=== PATIENT | male | born 1950 | race Caucasian/White ===

== ENCOUNTER 2017-04-28 09:18 | Emergency (ER) | payer OTHER ==
[~2017-04-28] VITALS: Ht 182.9 cm; Wt 150.0 kg
[2017-04-28 09:19] VITALS: BP 179/98; PULSE 89; RESP 20; TEMP 98; O2SAT 97
[2017-04-28 09:36] VITALS: BP 188/101; PULSE 62; RESP 20; O2SAT 97
[2017-04-28] MEDS ORDERED: OMEP20TA93 PO (09:41)
[2017-04-28] MEDS ORDERED: HYDR25TA5 PO (09:41)
[2017-04-28] MEDS ORDERED: POTA10CA PO (09:41)
[2017-04-28] MEDS ORDERED: ATOR20TA15 PO (09:41)
[2017-04-28] MEDS ORDERED: CHOL10008 (09:41)
[2017-04-28] MEDS ORDERED: METO-393 PO (09:41)
[2017-04-28] MEDS ORDERED: LORA1TAB12 PO (09:41)
[2017-04-28] MEDS ORDERED: ASPI-516 CHEW (09:41)
[2017-04-28] MEDS ORDERED: CITA40TA4 PO (09:41)
[2017-04-28] MEDS ORDERED: ALLO100T PO (09:41)
--- NOTE | 2017-04-28 09:54 | PD ---
HPI Chief Complaint: Respiratory Distress Time Seen by Provider: 09:53 Travel History International Travel<30 days: No Contact w/Intl Traveler<30days: No Traveled to known affect area: No History of Present Illness HPI 66-year-old male came to the emergency room with history shortness of breath over past 5-6 days which is worse upon exertion, laying down flat or even sitting. Patient says it has to do with his abdomen. It is getting more and more distended and his legs look swollen. He does have history of atrial fibrillation and is seen by ultrasound technol from [place]. His is in the room who gave additional history that patient had echocardiogram done 1 month ago which showed an EF of 60%. Patient's vital signs are stable. He has a pacemaker. Patient denies of any chest pain. Patient used to be a heavy alcohol drinker up until 6 weeks ago. Currently he is not drinking anymore. No known history of cirrhosis. PFSH Past Medical History Narrative Medical List of his past medical, surgical, social and family history is reviewed from the nursing note Hx Anticoagulant Therapy: Yes Atrial Fibrillation: Yes Cancer: Yes (prostate) Cardiovascular Problems: Yes Diminished Hearing: No Hypertension: Yes ?: Not Past Surgical History Pacemaker: Yes Social History Alcohol Use: No (quit 6 weeks ago) Tobacco Use: No Substance Use: Yes (marijuana) Allergies-Medications (Allergen,Severity, Reaction): Coded Allergies: No Known Allergies (Unverified , 04/28/17) Comments No known drug allergies. Reported Meds & Prescriptions Reported Meds & Active Scripts Active Lasix (Furosemide) 40 Mg Tab 40 Mg PO DAILY Reported Lorazepam 1 Mg Tab 1 Mg PO Q8H PRN Omeprazole 20 Mg Tab 20 Mg PO DAILY Aspirin 81 Mg Chew 81 Mg CHEW DAILY Vitamin D3 (Cholecalciferol) 1,000 Unit Cap 1,000 Units DAILY Citalopram (Citalopram Hydrobromide) 40 Mg Tab 40 Mg PO DAILY Allopurinol 100 Mg Tab 100 Mg PO DAILY Potassium Chloride ER (Potassium Chloride) 10 Meq Cap 10 Meq PO BID Hydrochlorothiazide 25 Mg Tab 25 Mg PO BID Metoprolol Succinate ER 24 HR (Metoprolol Succinate) 200 Mg Tab 200 Mg PO DAILY Atorvastatin (Atorvastatin Calcium) 20 Mg Tab 20 Mg PO HS Narrative Medication List of his home medications reviewed from the nursing note. Review of Systems Except as stated in HPI: all other systems reviewed are Neg Respiratory: Positive: Shortness of Breath Musculoskeletal: Positive: Edema Physical Exam Narrative GENERAL: Awake, alert, morbidly obese, mild distress SKIN: Focused skin assessment warm/dry. HEAD: Atraumatic. Normocephalic. EYES: Pupils equal and round. No scleral icterus. No injection or drainage. ENT: No nasal bleeding or discharge. Mucous membranes pink and moist. NECK: Trachea midline. No JVD. CARDIOVASCULAR: Regular rate and rhythm. No murmur appreciated. RESPIRATORY: No accessory muscle use. Clear to auscultation. Breath sounds equal bilaterally. GASTROINTESTINAL: Abdomen soft, non-tender, nondistended. Hepatic and splenic margins not palpable. MUSCULOSKELETAL: No obvious deformities. No clubbing. No cyanosis. Edema. NEUROLOGICAL: Awake and alert. No obvious cranial nerve deficits. Motor grossly within normal limits. Normal speech. PSYCHIATRIC: Appropriate mood and affect; insight and judgment normal. Data Data Last Documented VS Orders Orders Electrocardiogram (04/28/17 ) Complete Blood Count With Diff (04/28/17 10:01) Comprehensive Metabolic Panel (04/28/17 10:01) B-Type Natriuretic Peptide (04/28/17 10:01) Prothrombin Time / Inr (Pt) (04/28/17 10:01) Troponin I (04/28/17 10:01) Iv Access Insert/Monitor (04/28/17 10:01) Ecg Monitoring (04/28/17 10:01) Oximetry (04/28/17 10:01) Oxygen Administration (04/28/17 10:01) Chest, Single Ap (04/28/17 10:01) Sodium Chloride 0.9% Flush (Ns Flush) (04/28/17 10:15) Ct Abd/Pel W/O Iv Contrast (04/28/17 ) Oral Contrast - Adult (04/28/17 10:09) Diatrizoate Liq ( Gastroabraham Liq) (04/28/17 10:45) Ed Discharge Order (04/28/17 14:07) Labs Laboratory Tests Test 04/28/17 10:00 04/28/17 10:45 White Blood Count 6.2 TH/MM3 Red Blood Count 4.58 MIL/MM3 Hemoglobin 14.6 GM/DL Hematocrit 40.8 % Mean Corpuscular Volume 89.2 FL Mean Corpuscular Hemoglobin 31.8 PG Mean Corpuscular Hemoglobin Concent 35.7 % Red Cell Distribution Width 12.8 % Platelet Count 178 TH/MM3 Mean Platelet Volume 9.8 FL Neutrophils (%) (Auto) 65.0 % Lymphocytes (%) (Auto) 24.9 % Monocytes (%) (Auto) 8.0 % Eosinophils (%) (Auto) 1.6 % Basophils (%) (Auto) 0.5 % Neutrophils # (Auto) 4.0 TH/MM3 Lymphocytes # (Auto) 1.5 TH/MM3 Monocytes # (Auto) 0.5 TH/MM3 Eosinophils # (Auto) 0.1 TH/MM3 Basophils # (Auto) 0.0 TH/MM3 CBC Comment DIFF FINAL Differential Comment B-Type Natriuretic Peptide 141 PG/ML Prothrombin Time 11.2 SEC Prothromb Time International Ratio 1.1 RATIO Blood Urea Nitrogen 12 MG/DL Creatinine 0.68 MG/DL Random Glucose 137 MG/DL Total Protein 6.7 GM/DL Albumin 3.2 GM/DL Calcium Level 8.7 MG/DL Alkaline Phosphatase 70 U/L Aspartate Amino Transf (AST/SGOT) 21 U/L Alanine Aminotransferase (ALT/SGPT) 32 U/L Total Bilirubin 0.8 MG/DL Sodium Level 141 MEQ/L Potassium Level 3.6 MEQ/L Chloride Level 105 MEQ/L Carbon Dioxide Level 30.0 MEQ/L Anion Gap 6 MEQ/L Estimat Glomerular Filtration Rate 116 ML/MIN Troponin I LESS THAN 0.02 NG/ML MDM Medical Decision Making Medical Screen Exam Complete: Yes Emergency Medical Condition: Yes Medical Record Reviewed: Yes Interpretation(s) Twelve-lead EKG was reviewed by me. Intermittently paced rhythm, A. fib. Heart rate of 63 bpm. Differential Diagnosis CHF, ascites, pleural effusion, pneumonia Narrative Course 2:05 PM blood test results are back and within acceptable limits. BNP is within normal limits. Chest x-ray shows cardiomegaly but no fluid. I done a CT scan of his abdomen and pelvis that does not show any ascites and some other chronic findings unrelated to his current complaint. I am comfortable discharging this patient home. He needs to follow-up with his primary care outpatient. Procedures EKG Prior to Arrival: No Diagnosis Primary Impression: Obesity Qualified Codes: E66.9 - Obesity, unspecified; Z68.39 - Body mass index (bmi) 39.0-39.9, adult Additional Impression: Dyspnea on exertion Referrals: Primary Care Physician Additional Instructions: Please return to the ER if condition worsen or any other concerns. Otherwise follow-up with her primary care. Exercise and diet control will help with your condition. Med/Other Pt SpecificInfo: Prescription(s) given, No Change to Meds (Stop taking the hydrochlorothiazide) Scripts Furosemide (Lasix) 40 Mg Tab 40 MG PO DAILY, #30 TAB 0 Refills Prov: Tony Rubio MD 04/28/17 Disposition: 01 DISCHARGE HOME Condition: Stable Tony Rubio MD Apr 28, 2017 09:54
[2017-04-28] MEDS ORDERED: SODIUM CHLORIDE 0.9% FLUSH 10 ML FLUSH IVF PRN (10:15)
[2017-04-28 10:27] LABS: BASOPHIL % 0.5 % (0.0-2.0); EOSINOPHIL # 0.1 TH/MM3 (0-0.4); EOSINOPHIL % 1.6 % (0.0-4.0); HEMATOCRIT 40.8 % (39.0-51.0); HEMOGLOBIN 14.6 GM/DL (13.0-17.0); LYMPH % 24.9 % (9.0-44.0); LYMPHOCYTE # 1.5 TH/MM3 (1.0-4.8); MEAN CELL VOLUME 89.2 FL (80.0-100.0); MEAN CORPUSCULAR HEMOGLOBIN 31.8 PG (27.0-34.0); MEAN CORPUSCULAR HGB CONC 35.7 % (32.0-36.0); MEAN PLATELET VOLUME 9.8 FL (7.0-11.0); MONOCYTE # 0.5 TH/MM3 (0-0.9); PLATELET COUNT 178 TH/MM3 (150-450); RED BLOOD COUNT 4.58 MIL/MM3 (4.50-5.90); RED CELL DISTRIBUTION WIDTH 12.8 % (11.6-17.2); WHITE BLOOD COUNT 6.2 TH/MM3 (4.0-11.0)
[2017-04-28] MEDS ORDERED: DIATRIZOATE MEGLUM/DIATRIZOATE SOD 9 ML CUP ONE (10:45)
--- NOTE | 2017-04-28 10:48 | RADRPT ---
EXAM DATE/TIME: 04/28/2017 10:20 [facility] COMPARISON: No previous studies available for comparison. INDICATIONS : Short of breath with dizziness x1 week. MEDICAL HISTORY : None. SURGICAL HISTORY : None. ENCOUNTER: Initial ACUITY: 1 week PAIN SCORE: 3/10 LOCATION: Bilateral chest FINDINGS: A single view of the chest demonstrates the lungs to be symmetrically aerated without evidence of mas s, infiltrate or effusion. Heart enlarged. Pulmonary vascularity normal. Slight elevation right hemid iaphragm. The cardiomediastinal contours are unremarkable. Osseous structures are intact. CONCLUSION: Cardiomegaly with left sided pacemaker. Samy Sloan MD on April 28, 2017 at 10:45 Board Certified Radiologist. This report was verified electronically.
[2017-04-28 11:16] LABS: INTERNATIONAL NORMALIZED RATIO 1.1 RATIO; PROTHROMBIN TIME - PATIENT 11.2 SEC (9.8-11.6)
[2017-04-28 11:22] LABS: ALBUMIN 3.2 GM/DL (3.4-5.0); ALT (GPT) 32 U/L (12-78); AST (GOT) 21 U/L (15-37); BLOOD UREA NITROGEN 12 MG/DL (7-18); CALCIUM 8.7 MG/DL (8.5-10.1); CHLORIDE 105 MEQ/L (98-107); CREATININE 0.68 MG/DL (0.60-1.30); GLOMERULAR FILTRATION RATE 116 ML/MIN (>89); GLUCOSE,RANDOM 137 MG/DL (74-106); SODIUM (NA) 141 MEQ/L (136-145)
[2017-04-28 11:26] LABS: ALKALINE PHOSPHATASE 70 U/L (45-117); TOTAL BILIRUBIN ADULT 0.8 MG/DL (0.2-1.0); TOTAL PROTEIN 6.7 GM/DL (6.4-8.2); TROPONIN I LESS THAN 0.02 NG/ML (0.02-0.05)
--- NOTE | 2017-04-28 13:07 | RADRPT ---
EXAM DATE/TIME: 04/28/2017 12:47 [facility] COMPARISON: No previous studies available for comparison. INDICATIONS : Abdominal discomfort ORAL CONTRAST: Prescribed oral contrast ingested. RADIATION DOSE: 29.48 CTDIvol (mGy) ; Patient body habitus MEDICAL HISTORY : Cardiovascular disease. Hypertension. Prostate cancer SURGICAL HISTORY : Pacemaker. ENCOUNTER: Initial ACUITY: 1 week PAIN SCALE: 1/10 LOCATION: Bilateral Abdomen TECHNIQUE: Volumetric scanning of the abdomen and pelvis was performed. Using automated exposure control and ad justment of the mA and/or kV according to patient size, radiation dose was kept as low as reasonably achievable to obtain optimal diagnostic quality images. DICOM format image data is available electro nically for review and comparison. FINDINGS: LOWER LUNGS: There is mild to moderate cardiomegaly with transvenous pacer in place. There are small bilateral ple ural effusions. LIVER: Homogeneous density without lesion. There is no dilation of the biliary tree. No calcified gallston es. Gallbladder appears unremarkable. SPLEEN: Normal size without lesion. PANCREAS: Within normal limits. KIDNEYS: Normal in size and shape. There are multiple left renal cysts as well as to hyperdense lesions the la rger extent of the lateral lower pole measures up to 2.1 cm. The smaller extent of the medial kidney measures approximately 1 cm. There is also a 7 mm nonobstructing renal calculus. ADRENAL GLANDS: Within normal limits. VASCULAR: There is no aortic aneurysm. BOWEL/MESENTERY: The stomach, small bowel, and colon demonstrate no acute abnormality. There is no free intraperitone al air or fluid. ABDOMINAL WALL: Within normal limits. RETROPERITONEUM: There is no lymphadenopathy. BLADDER: No wall thickening or mass. REPRODUCTIVE: Within normal limits. INGUINAL: There is no lymphadenopathy or hernia. MUSCULOSKELETAL: Within normal limits for patient age. CONCLUSION: 1. Nonobstructing left renal calculus. 2. Multiple left renal cysts as well as 2 hyperdense left renal lesions which are nonspecific but lik jag represent complex cysts. Comparison with any old outside studies would be helpful. If not this co uld be further evaluated with outpatient ultrasound and/or MRI. 3. Unremarkable gallbladder 4. Small bilateral pleural effusions and cardiomegaly. 5. Unremarkable bowel gas pattern. Sher Lofton MD on April 28, 2017 at 13:00 Board Certified Radiologist. This report was verified electronically.
[2017-04-28 13:30] VITALS: BP 142/80; PULSE 68; RESP 16; O2SAT 95
--- NOTE | 2017-04-28 14:05 | EKG ---
Date Performed: 04/28/2017 Time Performed: 09:35:24 PTAGE: 66 years EKG: Atrial fibrillation with ventricular demand pacemaker nonspecific ST T-wave changes NO PREVIOUS TRACING DOCTOR: Jayesh Mendze Interpretating Date/Time 04/28/2017 14:04:14
[2017-04-28] MEDS ORDERED: FURO1TAB60 PO (14:13)
[2017-04-28 14:36] VITALS: BP 139/82
== END 2017-04-28 14:44 | disposition home or self-care (01) ==
LOC: NEPE 09:18
DX: E66.9 Obesity, unspecified (principal); R06.09 Other forms of dyspnea; I48.91 Unspecified atrial fibrillation; I10 Essential (primary) hypertension; Z79.01 Long term (current) use of anticoagulants; Z68.39 Body mass index [BMI] 39.0-39.9, adult
CPT/HCPCS: 71045; 74176; 80053; 83880; 84484; 85025; 85610; 93005; 99285; Q9963